=== PATIENT | female | born 1935 | race Caucasian/White ===

== ENCOUNTER 2018-04-19 16:33 | Emergency (ER) | payer OTHER ==
[~2018-04-19] VITALS: Ht 162.6 cm; Wt 68.0 kg
[~2018-04-19 16:33] MED LIST: ALBU90OI INH; ASPI81CH; ASPI81CH PO; ATOR40TA PO; CLAR500 PO; CLOP75 PO; CONEST.9; GABA300; HYDACE10B PO; HYDGUAL120 PO; HYDURE500 PO; LISI20 PO; PARO12.5; RANI150; SERT50 PO; TIOT18 INH; XARELTO15 MG PO
== END 2018-04-19 21:50 | disposition home or self-care (01) ==
LOC: ER 16:33
DX: H53.451 Other localized visual field defect, right eye (principal); J44.9 Chronic obstructive pulmonary disease, unspecified; I10 Essential (primary) hypertension; Z88.5 Allergy status to narcotic agent; Z88.2 Allergy status to sulfonamides; Z79.899 Other long term (current) drug therapy
CPT/HCPCS: 70450; 99284-25

== ENCOUNTER 2018-06-05 09:24 | Emergency (ER) | payer OTHER ==
[~2018-06-05] VITALS: Ht 157.5 cm; Wt 70.3 kg
[~2018-06-05 09:24] MED LIST changes: +ALBU90OI61 INH; +Aspir 8181 MG PO; +HYDHCL25 PO; +Norco 10-325 T1 EACH PO; +SERT100 PO; +XARELTO20 MG PO; +Zantac150 MG PO
[2018-06-05] MEDS ORDERED: LORA.5 (10:44)
[2018-06-05 10:48] LABS: BASOPHILS PERCENT AUTO 1 % (0-2); EOSINOPHILS ABSOLUTE AUTO 0.19 K/mm3 (0.00-0.68); EOSINOPHILS PERCENT AUTO 2 % (0-6); Hemoglobin 13.2 g/dL (11.5-16.0); IMMATURE GRAN ABSOLUTE AUTO 0.07 K/mm3 (0.00-0.10); IMMATURE GRAN PERCENT AUTO 1 % (0-1); LYMPHOCYTES ABSOLUTE AUTO 1.87 K/mm3 (0.84-5.20); LYMPHOCYTES PERCENT AUTO 16 % (21-46); MONOCYTES ABSOLUTE AUTO 0.83 K/mm3 (0.16-1.47); MONOCYTES PERCENT AUTO 7 % (4-13); Mean Platelet Volume 9.7 fL (9.1-12.4); NEUTROPHILS ABSOLUTE AUTO 8.88 K/mm3 (1.96-9.15); NEUTROPHILS PERCENT AUTO 74 % (41-73); Platelet Count 332 K/mm3 (150-400); White Blood Cell Count 11.94 K/mm3 (4.00-11.30)
[2018-06-05 10:49] LABS: Alanine Aminotransfer (ALT/SGP 23 U/L (12-78); Albumin, Blood 3.6 g/dL (3.4-5.0); Albumin/Globulin Ratio 0.9 (0.8-1.8); Alk Phos 91 U/L (50-136); Anion Gap 5 mmol/L (6-16); Aspartate Aminotrans (AST/SGOT 27 U/L (12-37); Bilirubin, Total 0.4 mg/dL (0.1-1.0); Blood Urea Nitrogen 12 mg/dL (8-24); Bun/Creatinine Ratio 13.1 (12.0-20.0); CO2, Blood 28 mmol/L (21-32); Calcium, Blood 9.2 mg/dL (8.5-10.1); Chloride, Blood 105 mmol/L (98-108); Creatinine, Blood 0.92 mg/dL (0.40-1.00); Globulin, Blood 3.8 g/dL (2.2-4.0); Glomerular Filtration Rate >60 (60-); Glucose, Blood 108 mg/dL (70-99); Potassium, Blood 4.6 mmol/L (3.5-5.5); Sodium, Blood 138 mmol/L (136-145); Total Protein, Blood 7.4 g/dL (6.4-8.2)
[2018-06-05 10:51] LABS: Hematocrit 46.6 % (33.0-51.0); Mean Corpuscular HGB 22.8 pg (26.0-34.0); Mean Corpuscular HGB Conc 28.3 g/dL (31.5-36.5); Mean Corpuscular Volume 81 fL (80-100); Red Blood Cell Count 5.78 M/mm3 (3.80-5.20)
[2018-06-05] MEDS ORDERED: HYDR1TAB94 PO (11:20)
== END 2018-06-05 11:47 | disposition home or self-care (01) ==
LOC: ER 09:24
PROVIDERS: Physician Assistant
DX: I96 Gangrene, not elsewhere classified (principal); L03.032 Cellulitis of left toe; J44.9 Chronic obstructive pulmonary disease, unspecified; I10 Essential (primary) hypertension; F17.210 Nicotine dependence, cigarettes, uncomplicated; Z88.0 Allergy status to penicillin; Z88.8 Allergy status to other drugs, medicaments and biological substances; Z79.899 Other long term (current) drug therapy; Z79.82 Long term (current) use of aspirin
CPT/HCPCS: 36415; 73630; 80053; 83605; 85025; 99283-25

== ENCOUNTER 2018-06-13 05:23 | Inpatient (IN) | payer OTHER ==
[~2018-06-13] VITALS: Ht 162.6 cm; Wt 65.0 kg
[~2018-06-13 05:23] MED LIST changes: +HYDR1TAB94 PO; +LISI5; +LORA.5
[2018-06-13 06:17] LABS: Alanine Aminotransfer (ALT/SGP 26 U/L (12-78); Albumin/Globulin Ratio 0.9 (0.8-1.8); Alk Phos 104 U/L (50-136); Anion Gap 9 mmol/L (6-16); Aspartate Aminotrans (AST/SGOT 47 U/L (12-37); Bilirubin, Total 0.7 mg/dL (0.1-1.0); Blood Urea Nitrogen 11 mg/dL (8-24); Bun/Creatinine Ratio 16.5 (12.0-20.0); CO2, Blood 28 mmol/L (21-32); Calcium, Blood 9.7 mg/dL (8.5-10.1); Chloride, Blood 101 mmol/L (98-108); Creatinine, Blood 0.67 mg/dL (0.40-1.00); Globulin, Blood 4.5 g/dL (2.2-4.0); Glomerular Filtration Rate >60 (60-); Glucose, Blood 144 mg/dL (70-99); Potassium, Blood 3.7 mmol/L (3.5-5.5); Sodium, Blood 138 mmol/L (136-145); Total Protein, Blood 8.5 g/dL (6.4-8.2)
[2018-06-13 06:32] LABS: BASOPHILS ABSOLUTE AUTO 0.13 K/mm3 (0.00-0.23); BASOPHILS PERCENT AUTO 1 % (0-2); EOSINOPHILS PERCENT AUTO 0 % (0-6); Hemoglobin 15.9 g/dL (11.5-16.0); IMMATURE GRAN ABSOLUTE AUTO 0.14 K/mm3 (0.00-0.10); IMMATURE GRAN PERCENT AUTO 1 % (0-1); LYMPHOCYTES ABSOLUTE AUTO 1.62 K/mm3 (0.84-5.20); LYMPHOCYTES PERCENT AUTO 7 % (21-46); MONOCYTES ABSOLUTE AUTO 1.28 K/mm3 (0.16-1.47); MONOCYTES PERCENT AUTO 5 % (4-13); Mean Platelet Volume 9.3 fL (9.1-12.4); NEUTROPHILS ABSOLUTE AUTO 20.37 K/mm3 (1.96-9.15); NEUTROPHILS PERCENT AUTO 87 % (41-73); Platelet Count 507 K/mm3 (150-400); White Blood Cell Count 23.54 K/mm3 (4.00-11.30)
[2018-06-13 06:36] LABS: Hematocrit 54.9 % (33.0-51.0); Mean Corpuscular HGB 23.3 pg (26.0-34.0); Mean Corpuscular Volume 81 fL (80-100); Red Blood Cell Count 6.81 M/mm3 (3.80-5.20)
[2018-06-13 07:04] LABS: Prothrombin Time Results 10.6 Sec (9.7-11.5)
--- NOTE | 2018-06-13 08:10 | NUR ---
PT. ARRIVED FROM [facility] VIA BED AWAKE, ALERT, ORIENTED. VSS. MONITOR NSR WITH HR 80-90'S. RT RADIAL AND RT. GRION SITE CLEAR. LT. PINKIE TOE NECROTIC. PIV X 2.
[2018-06-13] MEDS ORDERED: LORA.5 PO (10:58)
--- NOTE | 2018-06-13 14:00 | NUR ---
TR BAND DEFLATED SLOWLY FROM [id number]. SL. OOZE NOTED ONE TIME BUT NO HEMATOMA NOTED. RT GROIN SHEATH INTACT WITH CLEAR SITE. RT. GROIN DRSG CHANGED.
[2018-06-13 14:42] LABS: Source, Urine Catheter
--- NOTE | 2018-06-13 15:00 | NUR ---
FEM CATH UA DONE AND SEVERAL MIN AFTER PT WAS INC OF LARGE AMOUNT OF URINE. ELIEZER URIBE AND RT CIPRIANO BUCK CHG'D AT THIS TIME ALSO.
[2018-06-13 15:27] LABS: Bilirubin, Urine Neg (Neg); Blood, Urine Neg (Neg); Glucose Qualitative, Urine Neg (Neg); Ketones, Urine 1+ (Neg); Leukocyte Esterase, Urine Neg (Neg); Nitrite, Urine Neg (Neg); Protein, Urine 2+ (Neg); Specific Gravity, Urine 1.015 (1.003-1.022); Urobilinogen, Urine NORM (Normal)
[2018-06-13 15:47] LABS: Appearance, Urine Clear (Clear); Color, Urine Yellow (P-Yellow)
[2018-06-13 15:48] LABS: Bacteria Few /hpf; Red Blood Cells, Urine 0-2 /hpf (0-2); Squamous Epithelial Cells Few /hpf (Few); White Blood Cells, Urine 0-2 /hpf (0-5)
--- NOTE | 2018-06-13 16:00 | NUR ---
ANXIETY- ATARAX 25 MG GIVEN FOR ANXIOUSNESS. STS. PAIN IN TOE IS INCREASING AGAIN. WILL MEDICATE WHEN ABLE.
--- NOTE | 2018-06-13 16:02 | NUR ---
CONSULT DR. CASTREJON. DR. RANGEL PT. IS ADMITTED IN ICU SHE WAS SCHEDULED FOR PROCEDURE TOMORROW. ORDERS RECEIVED TO KEEP RT. GROIN IN PLACE AND SHEATH PRESSURIZED TO MONITOR BP.
--- NOTE | 2018-06-13 18:14 | NUR ---
SUMMARY- PT. STS. HAS 9 OUT OF 10 PAIN IN HER LT. TOE. MED WITH HYDROCODONE AT THIS TIME. SHE HAS BEEN MEDICATED TWICE FOR PAIN AND ONCE FOR ANXIETY TODAY. RT. RADIAL AND RT. GROIN SITES REMAIN CLEAR. A-LINE BP'S STABLE. AFEBRILE. UA CULTURE PENDING FROM EARLIER UA. PT. TO [facility] TOMORROW FOR REVASCULARIZING OF LT. LEG. PHOTOS DONE FOR LT. TOE AND RT. FOOT REDDENESS.
--- NOTE | 2018-06-13 20:30 | NUR ---
PT IS ALERT & PLEASANT, SL COCOPAH. R GROIN W ARTERIAL SHEATH IN PLACE & PRESSURE BAG TO KEEP LINE OPEN. PLAN FOR PT TO RETURN TO RISK INTERN IN AM FOR PERIPHERAL INTERVENTION. SITE IS SOFT, DRSG WELL IN PLACE, NO BLEEDING. PT IS LOG ROLLED TO USE BED FOURNIER TO VOID & PT TOLERATES WELL. AMY CARE WAS PROVIDED & PT NOTED W SMALL AREA L INGUINAL FOLD W SL REDNESS SUGGESTING EARLY YEAST (?). PEDAL PULSES ARE PER DOPPLER. PT NOTED W DARK PURPLE LITTLE TOE TO L FOOT. PHOTOS ON CHART. PT STATES NORCO IS VERY EFFECTIVE FOR THIS PAIN. VSS. PT IS IN SR, O2 2L NC FOR SAT MID 90'S. CALL LIGHT IS IN REACH & WILL CONT TO MONITOR.
[2018-06-14 03:47] LABS: BASOPHILS PERCENT AUTO 1 % (0-2); EOSINOPHILS ABSOLUTE AUTO 0.02 K/mm3 (0.00-0.68); EOSINOPHILS PERCENT AUTO 0 % (0-6); Hemoglobin 12.5 g/dL (11.5-16.0); IMMATURE GRAN ABSOLUTE AUTO 0.07 K/mm3 (0.00-0.10); IMMATURE GRAN PERCENT AUTO 0 % (0-1); LYMPHOCYTES ABSOLUTE AUTO 1.61 K/mm3 (0.84-5.20); LYMPHOCYTES PERCENT AUTO 9 % (21-46); MONOCYTES ABSOLUTE AUTO 1.54 K/mm3 (0.16-1.47); MONOCYTES PERCENT AUTO 9 % (4-13); Mean Platelet Volume 9.8 fL (9.1-12.4); NEUTROPHILS ABSOLUTE AUTO 14.75 K/mm3 (1.96-9.15); NEUTROPHILS PERCENT AUTO 82 % (41-73); Platelet Count 370 K/mm3 (150-400); White Blood Cell Count 18.09 K/mm3 (4.00-11.30)
[2018-06-14 03:49] LABS: Hematocrit 43.2 % (33.0-51.0); Mean Corpuscular HGB 23.9 pg (26.0-34.0); Mean Corpuscular HGB Conc 28.9 g/dL (31.5-36.5); Mean Corpuscular Volume 82 fL (80-100); Red Blood Cell Count 5.24 M/mm3 (3.80-5.20)
[2018-06-14 04:02] LABS: Anion Gap 7 mmol/L (6-16); Blood Urea Nitrogen 14 mg/dL (8-24); CO2, Blood 27 mmol/L (21-32); Calcium, Blood 8.2 mg/dL (8.5-10.1); Chloride, Blood 107 mmol/L (98-108); Creatinine, Blood 0.74 mg/dL (0.40-1.00); Glomerular Filtration Rate >60 (60-); Glucose, Blood 114 mg/dL (70-99); Potassium, Blood 3.8 mmol/L (3.5-5.5); Sodium, Blood 141 mmol/L (136-145)
--- NOTE | 2018-06-14 06:00 | NUR ---
PT CONT W ARTERIAL SHEATH R GROIN & SITE CONT CLEAR, SOFT & WO BLEEDING. PRESSURE BAG IN PLACE TO KEEP OPEN. PT HAS ASKED FOR PAIN MED SEVERAL TIMES FOR PAIN TO L FOOT. VSS. CONT IN NSR.
--- NOTE | 2018-06-14 07:30 | NUR ---
ASSUMED CARE OF PATIENT; SEE ASSESSMENT CHARTING FOR DETAILS. PATIENT SLEEPING BUT ROUSES TO VERBAL STIMULI. PATIENT ORIENTED AND COOPERATIVE. NPO, EXCEPT MEDS, D/T PROCEDURE (PERIPHERAL) AROUND NOON OR LATER. PATIENT C/O PAIN TO L SMALL TOE (BLACKENED AND PAINFUL); WILL MEDICATE PO. LUNGS CLEAR BUT DECREASED IN BASES; OXYGEN AT 2L/MIN VIA NC. SON ARRIVED AND VERY SUPPORTIVE.
--- NOTE | 2018-06-14 12:00 | NUR ---
OVERALL STATUS STABLE; PAIN TO L FOOT/TOE CONTROLLED WITH ORAL PAIN PILLS. TOLERATING MEDS. WITH SIPS OF WATER. SON AND DAUGHTER AT BEDSIDE. PATIENT SLEEPING.
--- NOTE | 2018-06-14 13:45 | NUR ---
TO HEART CENTER VIA BED WITH DATA REVIEW SPECIALIST AND 2 HEART CENTER STAFF MEMBERS. CHART WITH PATIENT. PATIENT RECEIVED PAIN MED. ABOUT 1/2 HOUR PRIOR TO ARRIVAL FROM HEART CENTER; PATIENT C/O 10/10 PAIN OF L TOE.
--- NOTE | 2018-06-14 15:40 | NUR ---
RETURNED FROM HEART CENTER; PATIENT A/O AND DENIES ACUTE PAIN; VSS. PART OF RLE CIRCULATION FIXED BUT ? SFA VESSEL TOTALLY OCCLUDED; PHYSICIAN WILL NEED TO DO FURTHER PROCEDURES TO COMPLETE REPAIR. CURRENTLY GOOD DOPPLER PULSES TO BILAT. PEDALS; COLOR PINK TO LEGS AND TOPS OF FEET AND SKIN WARM. L SMALL TOE REMAINS BLACKENED BUT PATIENT APPEARS LESS PAINFUL. R GROIN SITE WITH SL. OOZING (SUPERFICIAL); 2X2'S PLACED IN R FOLD; DRESSING WITH SOME BLOODY DRAINAGE; PARTIALLY DRIED. SURROUNDING TISSUE SOFT AND NO NOTED HEMATOMA. TR BAND SITE INTACT WITH CLEAR DRESSING; ARMBOARD IN PLACE TO PREVENT USE OF ARM/WRIST.
--- NOTE | 2018-06-14 18:30 | NUR ---
SUMMARY: OVERALL STATUS IMPROVED; L SMALL TOE APPEARS LESS BLACKENED AND PATIENT HAS NOT ASKED FOR PAIN MED. SINCE PRIOR TO PROCEDURE. RN AND PATIENTS' DAUGHTER ASSISTED PATIENT WITH MEAL; PATIENT TENDS TO RAISE HEAD UP AND TRIES TO SIT; BED PLACED IN REVERSE TRENDELENBERG POSITION AND THEN PATIENT FED. SAT TOTALLY UPRIGHT WHEN HAD TO HAVE BM; FORGOT TO STAY FLAT AND NOT BEND R KNEE, ETC. RN HAD PATIENT LAY DOWN; SOME LEAKING NOTED; SITE CLEANED UP AND NEW 2X2'S PLACED; SURROUNDING TISSUE INTACT. RN AND SKIDDER BATHED PATIENT AND CHANGED LINENS AFTER PT. USED BEDPAN; VOIDED AND HAD HUGE, SOFT, BROWN BM. MONITOR REMAINS NSR WITH OCCASIONAL ECTOPY; SBP 90'S. WILL REPORT TO ONCOMING RN.
--- NOTE | 2018-06-15 00:05 | NUR ---
ASSUMED CARE PT IS ON 2L O2 VIA NC. PT IN REVERSE TRENDELENBURG POSITION LYING FLAT.
--- NOTE | 2018-06-15 06:32 | NUR ---
SHIFT SUMMARY UNEVENTFUL NIGHT, PT IS A&OX4 AND DENIES PAIN ASIDE IN LEFT PINKY TOE, WHICH WAS ADEQUETLY CONTROLLED WITH NORCO. RIGHT FEMORAL AND RADIAL SITE BOTH NONTENDER, SOFT AND NO EVIDENCE OF HEMATOMA. HOWEVER, SLIGHT OOZE IN RIGHT FEMORAL AFTER INITIAL DRESSING CHANGE AND IS UNCHANGED. VITALS STABLE.
--- NOTE | 2018-06-15 07:30 | NUR ---
ASSUMED CARE OF PATIENT; SEE ASSESSMENT CHARTING FOR DETAILS. PATIENT AWAKE AND ORIENTED; CONT. WITH PAIN TO L FOOT/SMALL-PINKY TOE. WILL MEDICATE WITH PO PAIN MED. THIS AM. LUNGS CLEAR; BIOX STAYING MID 90'S ON ROOM AIR. MONITOR REMAINS NSR TO ST; SBP 90'S; AFEBRILE. ASSISTED OOB, TO BSC, FOR VOIDING; 1-PERSON SBA. SMILING AND FEELS HAPPY SHE CAN GET OOB WITHOUT FEELING UNDUE PAIN. R WRIST WITH CLEAR DRESSING (TR BAND SITE) INTACT; ARMBOARD IN PLACE TO PREVENT USING WRIST. R GROIN SITE INTACT; SOME BLOODY DRAINAGE NOTED ON 2X2; A NICKEL SIZED SPOT; TISSUE SOFT; NO SWELLING NOTED.
--- NOTE | 2018-06-15 07:35 | NUR ---
DR. JEAN HERE; ORDERS TO DISCHARGE PATIENT HOME; SEE ORDERS/UPDATES. SOCIAL MEDIA STRATEGIST CONTATED PATIENTS SON AND DAUGHTER; SON UPSET THAT PATIENT GOING HOME WITHOUT TIME FOR FAMILY TO GET HOUSE IN ORDER. PATIENT WILL BE TAKEN TO DAUGHTERS HOME; NO STAIRS AND AN OPENED FLOOR PLAN TO ACCOMODATE A WALKER AND A W/C. SECURITY CONTROL ASSESSOR, [place], TO CONTACT [facility] AND SETUP NURSING, P.T. AND BATH AIDE TO FOLLOW PATIENT. FAMILY WILL GO HOME AND GET THINGS READY AT BOTH HOMES, FOR PATIENT; TO RETURN AROUND 17:00.
[2018-06-15] MEDS ORDERED: Lopressor 25 mg25 MG PO (09:02)
[2018-06-15] MEDS ORDERED: CLOP75 PO (09:25)
--- NOTE | 2018-06-15 13:00 | NUR ---
SLEEPING WHEN NOT DISTURBED. CLOTH SHEARING SUPERVISOR COMPLETED DISCHARGE INSTRUCTIONS, ETC. AND CONTACTED PATIENT'S PHARMACY WITH RX'S. PATIENT ATE ABOUT 5% OF LUNCH; RN SETUP TRANY AND FED PATIENT A FEW BITES; THEN PATIENT MORE ALERT AND TOOK A FEW BITES ON OWN BUT FELL BACK TO SLEEP AFTER A COUPLE MINUTES. RN CHECKED MOUTH ETC. TO MAKE SURE NO FOOD LODGED ANYWHERE; THEN TRAY REMOVED AND RN ADJUSTED HOB FOR PATIENTS' COMFORT.
--- NOTE | 2018-06-15 13:36 | NUR ---
CALL FROM [facility] PT HAS EXISTING RX FOR XARELTO, NEW ORDER CALLED IN FOR PLAVIX, SPOKE WITH DR JEAN WHO WANTED PT TO TAKE BOTH, BUT SPOKE WITH DR CASTREJON AND HE WOULD LIKE PATIENT TO ONLY BE ON XARELTO UNTIL HE SEES HER IN THE OFFICE. DISCHARGE INSTRUCTIONS MODIFIED ACCORDINGLY
--- NOTE | 2018-06-15 16:50 | NUR ---
DR. CASTREJON ARRIVED; EXPLAINED TO PATIENT AND HER DAUGHTER AND SON WHAT HE FOUND DURING PERIPH. PROCEDURE AND WHAT HE WAS ABLE TO FIX; GOING OVER SURGERY TO BE DONE NEXT WEEK TO COMPLETE PROCEDURE BY GOING THROUGH L FOOT, ETC; [place] DIAGRAM TO SHOW ALL WHAT HE DID AND NEEDS TO DAY. HAD PATIENT SIGN CONSENT FOR PROCEDURE SCHEDULED FOR NEXT WEEK; INFORMED PATIENT THAT IT WOULD BE AN OUTPATIENT PROCEDURE.
--- NOTE | 2018-06-15 17:05 | NUR ---
RN DC'D IV'S IN BILAT. AC SITES WITHOUT DIFFICULTY. REMOVED MONITOR, BP CUFF ETC AND DAUGHTER ASSISTING PATIENT WITH DRESSING. PATIENT ABLE TO TRANSFER SELF FROM TOILET TO CHAIR WITHOUT ASSIST.
--- NOTE | 2018-06-15 17:20 | NUR ---
DISCHARGE INTRUCTIONS GIVEN WITH UNDERSTANDING VERBALIZED; DAUGHTER WILL P/U RX'S AT [facility]. AND TAKE PATIENT TO HER HOME FOR INITIAL RECOVERY D/T PATIENTS HOME HAS LOTS OF STAIRS AND IS VERY CLUTTERED. SON ASSISTED PATIENT INTO VEHICLE AND THEN DAUGHTER DROVE OFF WITH PATIENT; NO ACUTE CONCERNS.
[2018-06-19] MEDS ORDERED: LISI20 PO (14:06)
== END 2018-06-15 17:23 | disposition home or self-care (01) | DRG 253 ==
LOC: ER 05:23 → ICUW 05:24 → ICUE 08:10
PROVIDERS: Emergency Medicine; Hospitalist; ADMIT Internal Medicine Interventional Cardiology
PROC: B2111ZZ Fluoroscopy of Multiple Coronary Arteries using Low Osmolar Contrast (ICD-10-PCS; principal; 2018-06-13)
PROC: 047L3ZZ Dilation of Left Femoral Artery, Percutaneous Approach (ICD-10-PCS; 2018-06-14)
PROC: 3E05317 Introduction of Other Thrombolytic into Peripheral Artery, Percutaneous Approach (ICD-10-PCS; 2018-06-14)
PROC: B41D1ZZ Fluoroscopy of Aorta and Bilateral Lower Extremity Arteries using Low Osmolar Contrast (ICD-10-PCS; 2018-06-14)
DX: I51.81 Takotsubo syndrome (principal); I42.9 Cardiomyopathy, unspecified; J44.9 Chronic obstructive pulmonary disease, unspecified; F17.210 Nicotine dependence, cigarettes, uncomplicated; Z79.82 Long term (current) use of aspirin; I73.9 Peripheral vascular disease, unspecified; I10 Essential (primary) hypertension; E78.5 Hyperlipidemia, unspecified; K21.9 Gastro-esophageal reflux disease without esophagitis; F41.9 Anxiety disorder, unspecified; Z79.02 Long term (current) use of antithrombotics/antiplatelets
CPT/HCPCS: 36415; 37213; 37220; 37224; 71046; 75625; 75710; 75716; 75774; 80048; 80053; 81001; 84484; 85025; 85610; 85730; 93005; 93010; 93458; 96374; 99152; 99153; 99285-25; C1725; C1760; C1769; C1887; C1894; C2623; J1644; J2250; J2405; J3010; J7030; J7040; Q9967

== ENCOUNTER 2018-06-30 10:00 | Emergency (ER) | payer OTHER ==
[~2018-06-30] VITALS: Ht 160 cm; Wt 63.5 kg
[~2018-06-30 10:00] MED LIST changes: +LORA.5 PO; +Lopressor 25 mg25 MG PO
[2018-06-30] MEDS ORDERED: [UNRECOGNIZED DRUG - OTHER] (10:11)
== END 2018-06-30 13:00 | disposition home or self-care (01) ==
LOC: ER 10:00
DX: S52.612A Displaced fracture of left ulna styloid process, initial encounter for closed fracture (principal); S52.502A Unspecified fracture of the lower end of left radius, initial encounter for closed fracture; W18.30XA Fall on same level, unspecified, initial encounter; Z88.0 Allergy status to penicillin; Z88.8 Allergy status to other drugs, medicaments and biological substances; Z79.899 Other long term (current) drug therapy; Z79.82 Long term (current) use of aspirin; J44.9 Chronic obstructive pulmonary disease, unspecified; I10 Essential (primary) hypertension
CPT/HCPCS: 29125; 73110; 99283-25